=== PATIENT | female | born 1965 ===

== ENCOUNTER 2017-05-11 08:42 | Day surgery (SDC) | payer OTHER ==
[2017-05-11] MEDS ORDERED: Lactated Ringer's 1,000 ML IV ONE (11:20)
[2017-05-11] MEDS ORDERED: Propofol 10 mg/ml Inj (20 ML) ONE (12:14)
[2017-05-11 12:56] VITALS: BP 129/76; PULSE 66; RESP 13; TEMP 97.4; O2SAT 100
== END 2017-05-11 12:57 | disposition home or self-care (01) ==
LOC: H.ENDO 08:42
PROVIDERS: ATTEND Internal Medicine Gastroenterology
DX: Z12.11 Encounter for screening for malignant neoplasm of colon (principal); K64.8 Other hemorrhoids; E11.9 Type 2 diabetes mellitus without complications
CPT/HCPCS: 45378; 82948; J2704; J7120